=== PATIENT | female | born 1980 | race Caucasian/White ===

== ENCOUNTER 2021-09-10 22:34 | Emergency (ER) | payer OTHER ==
[~2021-09-10] VITALS: Ht 175.3 cm; Wt 108.9 kg
[2021-09-11 00:26] LABS: ABSOLUTE NEUTROPHILS 6.7 thou/uL (1.4-8.2); BASOPHILS 1.1 % (0.0-2.0); EOSINOPHILS 2.5 % (0.0-3.0); HEMATOCRIT 26.5 % (37.0-47.0); HEMOGLOBIN 7.6 gm/dL (12.0-15.0); LYMPHOCYTES 24.5 % (24.0-44.0); MCH 17.8 pg (26.0-34.0); MCHC 28.8 g/dL (28.0-37.0); MCV 61.8 fL (80.0-100.0); MONOCYTES 5.3 % (1.0-8.0); PLATELET COUNT 311 thou/uL (150-400); POLYS 66.6 % (36.0-66.0); RDW 18.7 % (10.5-14.5); WBC 10.1 thou/uL (4.0-11.0)
[2021-09-11 00:35] LABS: CALCIUM 8.7 mg/dL (8.5-10.1); CREATININE 0.7 mg/dL (0.6-1.0); POTASSIUM 3.9 mmol/L (3.5-5.1)
[2021-09-11] MEDS ORDERED: NORCO5 PO (02:20)
[2021-09-11] MEDS ORDERED: MOBIC15 MG PO (02:20)
[2021-09-11 02:50] VITALS: BP 123/50
--- NOTE | 2021-09-11 08:03 | EKG ---
[address] [place] [address] ELECTROCARDIOGRAM REPORT Name: GRANTNIDIA SWEENEYRUTH Room #: [id number] Admission: 09/10/21 Attend Phys: Discharge: 09/11/21 Date of : 82 Report #: [id number] [facility] ED Test Date: 2021-09-10 Test Time: 22:42:48 Pat Name: RUTH GRANT Department: Room: Gender: F Ceramist: [facility] : 1980 Requested By: Rubia Egan Order Number: [id number] MD: Fox Acevedo Measurements Intervals [place] Rate: 82 P: 43 OR: 167 QRS: 3 QRSD: 88 T: -64 QT: 406 QTc: 475 Interpretive Statements Sinus rhythm Nonspecific ST and T wave abnormality No previous ECG available for comparison Electronically Signed On 09-11-2021 8:03:07 RN INFUSION by Fox Acevedo [email or web address] <ELECTRONICALLY SIGNED> By: Fox Acevedo MD, [facility] 09/11/21 [id number] Fox Aecvedo MD, FAC /EPI
== END 2021-09-11 02:52 | disposition home or self-care (01) ==
LOC: ER 22:34
PROVIDERS: Emergency Medicine
DX: R07.89 Other chest pain (principal); R06.00 Dyspnea, unspecified; F12.90 Cannabis use, unspecified, uncomplicated; Z79.899 Other long term (current) drug therapy; Z98.890 Other specified postprocedural states; Z91.09 Other allergy status, other than to drugs and biological substances